=== PATIENT | female | born 1965 | race Two or more races ===

== ENCOUNTER 2023-01-05 14:52 | Emergency (ER) | payer OTHER ==
[~2023-01-05] VITALS: Ht 167.6 cm; Wt 83.5 kg
== END 2023-01-05 19:35 | disposition home or self-care (01) ==
LOC: ER 14:52
PROVIDERS: General Practice
DX: R22.1 Localized swelling, mass and lump, neck (principal); Z88.8 Allergy status to other drugs, medicaments and biological substances; Z20.822 Contact with and (suspected) exposure to COVID-19

== ENCOUNTER → 2023-01-08 | Emergency (ER) | payer OTHER | END | disposition home or self-care (01) | LOC: ER 09:27 | DX: R22.1 Localized swelling, mass and lump, neck (principal); Z88.8 Allergy status to other drugs, medicaments and biological substances ==